=== PATIENT | male | born 1965 | race Caucasian/White ===

== ENCOUNTER 2025-02-15 13:17 | Outpatient (AMB) | payer OTHER, SELFPAY ==
--- NOTE | 2025-02-15 13:28 | MHC.OFFWIV ---
Intake Vital Signs 02/15/25 14:01 Height 6 ft 3 in Weight 260 lb BMI 32.5 BP 140/90 H Blood Pressure Location Lt brachial Position Sitting Pulse 108 H Pulse Source Pulse Oximeter Temp 98.0 F Temp Source Oral Pulse Oximetry (%) 98 Oxygen Delivery Method Room Air Intake Visit Reasons: WORKING SECOND HAND Cough, chest congestion Intake Note: Pt presents to the office today for c/o cough,chest congestion, and sinus pressure x2 weeks. Patient Tobacco Use Status: Never used Tobacco Allergies doxycycline Allergy (Intermediate, Verified 02/15/25 14:05) Hives HPI WORKING SECOND HAND Cough, chest congestion HPI Details This is a 60-year-old male patient who presents to the walk-in clinic today with a one-week history of cough, chest congestion, sinus pressure. He states that he has a lot of congestion in his upper airways, and he has developed pneumonia in the past following similar illnesses, and would like to avoid this. He states he had a fever earlier this week which has since resolved. Denies any known exposure to sick contacts. Has tried Delsym without relief. [facility] Social History Patient Tobacco Use Status: Never used Tobacco Review of Systems Const All systems reviewed & are unremarkable except as noted in HPI and below Physical Exam Vital Signs: Last Vital Signs Temp 98.0 F 02/15/25 14:01 Pulse 108 H 02/15/25 14:01 BP 140/90 H 02/15/25 14:01 Pulse Ox 98 02/15/25 14:01 Oxygen Delivery Method Room Air 02/15/25 14:01 BMI result Body Mass Index 32.5 Const General: cooperative, healthy appearing, comfortable and no acute distress Limitations: no limitations HEENT Head: Yes normal to inspection Ears: hearing grossly normal bilaterally General nose exam: Normal external nose present Neck Neck: Yes no lymphadenopathy Resp Effort & Inspection: normal respiratory effort and able to speak in complete sentences Auscultation: rhonchi (otherwise clear) upper bilaterally Cardio Palpation: normal PMI Rate: regular rate Rhythm: regular rhythm Heart sounds: S1 normal heart sound present and S2 normal heart sound present Skin General skin exam: no rashes or lesions noted Extrem General: Yes no clubbing, cyanosis or edema Psych Appearance: grossly normal Mental Status: mental status grossly normal Speech and movement: Normal speech and movement present Assessment & Plan Assessment & Plan (1) Upper respiratory infection: Code(s): J06.9 - Acute upper respiratory infection, unspecified Qualifiers: URI type: unspecified URI Qualified Code(s): J06.9 - Acute upper respiratory infection, unspecified Plan: Will start azithromycin, as this has worked well for patient for similar or illnesses in the past. We reviewed indications, use, possible side effects of this medication. I encouraged him to utilize some sotq-eph-khyypcu cough/cold medication, such as Mucinex which may help him expectorate some of those secretions. Advised to return for follow up if he does not improve with treatment. Patient verbalizes understanding and agrees to plan. Medications: New azithromycin For 250 mg dose pack: take 500 mg today (day 1), then 250 mg for 4 days (days 2-5) PO 6 tabs 0RF J06.9 - Acute upper respiratory infection, unspecified Coding Level of Care Code Est Pt Level 4 (25149) Diagnoses Upper respiratory tract infection, unspecified type J06.9 URI type: unspecified URI
--- OUTSIDE RECORDS SUMMARY | 2025-02-15 13:42 | XMS_ITS | Patient Health Record ---
[facility] Address [address] [place] [address] Care Team Providers Care Health Nurse Name Role Phone Chucky Smith MD Primary Care Provider Clari Arroyo Unavailable [phone] Allergies Allergen (clinical drug ingredient) Drug/Non Drug Allergy documented on EMR Reaction Allergy Type Onset Date Status doxycycline Doxycycline Unknown Drug Allergy Act hardeep Reason For Referral No Information Medications Medication SIG (Take, Route, Frequency, Duration) Notes Start Date End Date Status Benazepril HCl 10 MG 1 tablet Orally Onc e a day for 30 day(s) Active amLODIPine Besylate 5 MG 1 tablet Orally Once a day for 30 day(s) Active Social History Tobacco Use: Social History Observation Description Date Details (start date - stop date) Never Smoker NA - NA Tobacco Use/Smoking Question Answer Notes Are you a: nonsmoker Additional Findings: Tobacco Non-User Current no n-smoker Alcohol Screen Question Answer Notes Did you have a drink containing alcohol in the p ast year? No Points 0 Interpretation Negative Plan Of Treatment No Information Insurance Providers Payer Name Payer Address Payer Phone Subscriber Number Group Number Insured Name Patient Relationship to Insured Coverage Start Date Coverage End Date [facility] [address] [place] [address] [phone] [id number] Rohan Soto Self - patient is the insured Medical (General) History Medical History History ICD Code Back,Hip,and Knee pain High blood pressure Joint implants/screws Von Willebrands Disease Surgical History Surgery Date(Month/Year) jaw surgery 1984 arthroscopic knee surgery 2000, 2001 ankle surgery 1994
--- OUTSIDE RECORDS SUMMARY | 2025-02-15 13:43 | XMS_ITS ---
Author Organization [facility] Address [address] [place] [address] Care Team Providers Care Vending Attendant Name Role Phone Chucky Smith MD Primary Care Provider Unava ilClari Winkler [phone] REASON FOR VISIT Formula 7 Encounters Encounter Location Date Provider Diagnosis [facility] [address] [place] [address] 12/06/2023 Clari Quinones Plan Of Treatment No Information Progress Notes * Rohan SOTODOB:1965 (58 yo M)Acc No.[id number]:12/06/2023 Patient:?Rohan Soto :1965???Age:58 Y???Sex:Male Address:[address] [place] [address], [address] * true * Date:? Generated for Printi ng/Fabrandong/eTransmitting on:?02/15/2025 01:42 PM EDT
--- OUTSIDE RECORDS SUMMARY | 2025-02-15 13:43 | XMS_ITS | Continuity of Care Document ---
Author Organization [facility] Address [address] [place] [address]- Care Team Providers Care Hand Rigger Name Role Phone Sarah PARIS, Chucky Robles Primary Care Physician [phone] [id number] Date[facility] - 02/10/25 [facility] [address], [place] [address] Encounter Type: Triage Allergies, Adverse Reactions, Alerts Substance Criticality Severity Reaction Reaction Severity Status labetalol CRITICAL Active doxycycline RASH Active Avelox CRITICAL Active hydroCHLOROthiazide CRITICAL Active Pollen Active zolpidem CRITICAL Active Singulair CRITICAL Active FLUoxetine CRITICAL Active Immunizations Given and Recorded Vaccine Date Status Refusal Reason Typhoid Vaccine, Inactivated 08/09/24 Recorded Typhoid Vaccine, Inactivated 11/13/19 Given influenza virus vaccine, inactivated 07/21/24 Marco rded influenza virus vaccine, inactivated 1 07/25/23 Re corded influenza virus vaccine, inactivated 07/25/22 Marco rded influenza virus vaccine, inactivated 08/26/21 Marco rded influenza virus vaccine, inactivated 07/16/20 Marco rded influenza virus vaccine, inactivated 08/30/17 Marco rded influenza virus vaccine, inactivated 2 08/10/16 Re corded SARS-CoV-2(COVID-19)mRNA-LNP vac([id number]) 07/21/24 Recorded [id number] bivalent booster vax 3 08/01/23 Recorded pneumococcal 20-valent conjugate vaccine 12/24/22 Recorded [id number] 12y+ bivalent booster vax 4 07/25/22 Recorded smallpox and monkeypox vaccine 07/14/22 Recorded SARS-CoV-2 (COVID-19) mRNA-1273 vaccine 02/14/22 R ecorded SARS-CoV-2 (COVID-19) mRNA-1273 vaccine 09/25/21 R ecorded SARS-CoV-2 (COVID-19) mRNA-1273 vaccine 11/29/20 R ecorded SARS-CoV-2 (COVID-19) mRNA-1273 vaccine 11/01/20 R ecorded Zoster Vaccine Live 12/08/19 Recorded tetanus/diphtheria/pertussis, acel(Tdap) 11/09/19 Given tetanus/diphtheria/pertussis, acel(Tdap) 5 08/11/10 Recorded zoster vaccine, inactivated 07/06/19 Recorded pneumococcal 23-valent vaccine 6 02/16/99 Recorded 1Result Comment: Helga 2Location History: [facility] 3Result Comment: [facility] 4Result Comment: [facility] 5Location History: [facility] 6Location History: [facility] Medications Laurie By Mouth, 0 Refills, Maintenance, 08/24/23 1:47:00 PM EDT, Partial fill upon patient request if theprescription is for a schedule II opioid drug. Start Date: 08/24/23 Status: Ordered Repeat number: 1 amlodipine-benazepril 5 mg-10 mg oral capsule 1 capsule, By Mouth, Daily, # 90 capsule, 3 Refills, Maintenance, 01/13/25 6:11:00 AM EDT, Capsule, [id number], Partial fill upon patient request if the prescription is for a schedule II opioid drug., 1 capsule By Mouth Daily, 190, cm, 01/03/25 14:28:00 EST, Height, 123, kg, 01/03/2514:28:00 EST, Dry Weight Start Date: 01/13/25 Status: Ordered Quantity: 90.0 Unit: capsule Repeat number: 4 Multivitamin Daily, 0 Refills, Maintenance, 09/22/22 8:17:00 AM EST, Partial fill upon patient request if the prescription is for a schedule II opioid drug. Start Date: 09/22/22 Status: Ordered Repeat number: 1 Problem List Condition Confirmation Course Effective Dates Status Health St atus Informant Allergic rhinitis Confirmed Active Carpal tunnel syndrome Confirmed Active Essential hypertension Confirmed Active Obese class I Confirmed Active Colon polyps Confirmed Active Varicella 1 Confirmed Active Verruca Confirmed Active Von Willebrand disease Confirmed Active [facility]IT[id number] Social History Social History Type Response Smoking Status Never smoker entered on: 07/22/17 Sex Sex Representation Male (finding) Patient Care team information Care Team Personnel Name: Desirae Delgaod Position: [facility] Onco RN Member Role: Primary Care Nurse Name: Cal Angel MD Position: [facility] Physician - Gastroenterology Member Role: Lifetime Consulting Physician Address: [address] [place] [address], [address] [facility] [place] [address]- Telecom: Name: Tana Ron RN Position: [facility] RN Member Role: Primary Care Nurse Name: Chucky Smith MD Position: [facility] Physician - Primary Care Member Role: PCP Address: [address] [place] [address]- Telecom: Care Team Related Persons Name: SUNNI GRAHAM Insurance Providers Guarantor name: ED GRAHAM Health Plan Information #: 1 Payer: BLUE B[employer]EFIT [employer] PPO Member Number: NA Policy Number: NA Group Number: NA
[2025-02-15 14:01] VITALS: BP 140/90; PULSE 108; TEMP 36.7; O2SAT 98; BMI 32.5
== END 2025-02-15 14:26 | disposition home or self-care (01) ==
PROVIDERS: PCP Internal Medicine; Visit Provider Nurse Practitioner Family
DX: J06.9 Acute upper respiratory infection, unspecified (principal)

== ENCOUNTER → 2025-02-15 13:17 | Outpatient (BNVA) | payer OTHER, SELFPAY | PROVIDERS: PCP Internal Medicine ==

== ENCOUNTER 2025-02-20 09:52 | Outpatient (REF) | payer OTHER, SELFPAY ==
--- NOTE | ~2025-02-20 | XR_ITS ---
EXAMINATION: XR CHEST 2 VIEWS HISTORY: R09.89 - Other specified symptoms and signs involving the circulatory an... COMPARISON: There are no prior studies for comparison. FINDINGS: PA and lateral views of the chest are submitted. The lungs are expanded and clear. There is no pleural effusion, pneumothorax, or pulmonary vascular congestion. The heart is normal in size. There is degenerative disc disease of the spine. XR/XR chest 2V IMPRESSION: Clear lungs. Electronically signed by: Bipin Ponce MD 02/21/2025 08:04 AM EDT
[2025-02-20 13:18] LABS: MANUAL DIFF FLAG NO
[2025-02-20 13:32] LABS: Basophils Absolute Auto 0.1 X10*3/uL (0.0-0.2); Basophils Percent Auto 0.7 % (0-2); Eosinophils Absolute Auto 0.3 X10*3/uL (0.0-0.4); Eosinophils Percent Auto 3.2 % (0-4); Hemoglobin 14.7 g/dl (14.0-18.0); Imm Gran Pct Auto 2.2 % (0.0-0.4); Lymphocytes Absolute Auto 2.4 X10*3/uL (1.2-4.9); Lymphocytes Percent Auto 26.5 % (20-40); Mean Corpuscular Hemoglobin 31.7 pg (27.0-33.0); Mean Corpuscular Volume 90.7 fL (80.0-98.0); Mean Platelet Volume 10.5 fL (9.4-12.4); Monocytes Absolute Auto 1.1 X10*3/uL (0.1-1.2); Monocytes Percent Auto 11.7 % (2-11); Neutrophils Absolute Auto 5.1 x10*3/uL (2.0-8.3); Neutrophils Percent Auto 55.7 % (45-73); Platelet Count 289 X10*3/uL (160-400); Red Blood Count 4.63 X10*6/uL (4.60-5.80); Red Cell Distribution Width 13.1 % (11.0-16.0); White Blood Count 9.2 X10*3/uL (4.8-10.8)
== END 2025-02-20 09:53 | disposition home or self-care (01) ==
LOC: HO.HMGCX 09:52
PROVIDERS: PCP Internal Medicine; Visit Provider Internal Medicine
DX: J98.01 Acute bronchospasm (principal); R09.89 Other specified symptoms and signs involving the circulatory and respiratory systems
CPT/HCPCS: 36415; 71046; 85025; 94640; 96127

== ENCOUNTER 2025-02-20 09:52 | Outpatient (AMB) | payer OTHER, SELFPAY ==
--- NOTE | 2025-02-20 09:54 | MHC.PC.OV ---
Vital Signs 02/20/25 09:56 Height 6 ft 3 in Weight 260 lb BMI 32.5 BP 138/74 Blood Pressure Location Lt brachial Position Sitting Respiration 16 Pulse 99 Pulse Source Pulse Oximeter Temp 97.6 F Temp Source Oral Pulse Oximetry (%) 97 Oxygen Delivery Method Room Air Intake Visit Reasons: chest congestion Intake Note: Pt is here today c/o nasal and chest congestion plus wheezing Allergies doxycycline Allergy (Intermediate, Verified 02/20/25 10:06) Hives Medication List - Last Reconciled 02/20/25 by Desirae Alarcon MD amlodipine-benazepril 5-10 mg 1 cap PO DAILY fexofenadine (Laurie Allergy) 180 mg PO DAILY Tobacco use date assessed: 02/20/25 HPI chest congestion HPI Details 60-year-old male, here to establish care with new PCP. He has been having cough and chest congestion and postnasal drainage, seen at the walk-in clinic 02/15/2025 and treated for possible sinus infection with azithromycin , with no improvement of symptoms noted. He has been afebrile, but still having cough and congestion, with wheezing and easily getting winded. [facility] Medical History (Updated 02/20/25 @ 10:24 by Desirae Alarcon MD) Chest congestion Cough due to bronchospasm History of adenomatous polyp of colon Essential hypertension Von Willebrand disease Surgical History (Updated 02/20/25 @ 10:16 by Desirae Alarcon MD) History of mandibular surgery Hx of Achilles tendon repair History of arthroscopy of left knee Family History (Updated 02/20/25 @ 10:22 by Desirae Alarcon MD) Mother Hypothyroidism Hypercholesterolemia Father Lung cancer Paternal Uncle Lung cancer Social History (Updated 02/21/25 @ 00:06 by Desirae Alarcon MD) Alcohol intake: current Alcohol intake frequency: holidays/special occasions only Patient Tobacco Use Status: Never used Tobacco Questionnaire PHQ-9 Over the last 2 weeks, how often have you been bothered by any of the following problems? 1. Little interest or pleasure in doing things: not at all 2. Feeling down, depressed, or hopeless: not at all 3. Trouble falling or staying asleep, or sleeping too much: not at all 4. Feeling tired or having little energy: not at all 5. Poor appetite or overeating: not at all 6. Feeling bad about yourself - or that you are a failure or have let yourself or your family down: not at all 7. Trouble concentrating on things, such as reading the newspaper or watching television: not at all 8. Moving or speaking so slowly that other people could have noticed. Or the opposite - being so fidgety or restless that you have been moving around a lot more than usual: not at all 9. Thoughts that you would be better off or of hurting yourself in some way: not at all Total score: 0 Depression Screening Interpretation: Negative Depression Screening Done: Yes 20759 - PHQ-9 Billing: Yes Source: Developed by Drs. Bipin Ramos, Brielle Zelaya, Yayo Singh and colleagues, with an educational parish from [employer]. Review of Systems Const Reports no additional complaints and Denies headache(s) ENT Denies dizziness, Denies otalgia, Denies headache(s), Denies sinus pain, Denies sinus pressure, Denies sore throat and Denies throat swelling Card Reports no additional complaints Resp Reports as per HPI GI Reports no additional complaints Musc Reports no additional complaints Neuro Denies dizziness and Denies headache(s) Aller/Immun Denies throat swelling Physical exam (Primary Care) Vital Signs: Last Vital Signs Temp 97.6 F 02/20/25 09:56 Pulse 99 02/20/25 09:56 Resp 16 02/20/25 09:56 BP 138/74 02/20/25 09:56 Pulse Ox 97 02/20/25 09:56 Oxygen Delivery Method Room Air 02/20/25 09:56 BMI result Body Mass Index 32.5 Tobacco/Smoking Status: Tobacco use Status Tobacco use date assessed 02/20/25 02/20/25 09:59 Patient Tobacco Use Status Never used Tobacco 02/20/25 09:59 Depression Screening Interpretation: Negative Const Orientation/consciousness: patient oriented x3 HENMT Head: Yes normocephalic Ears: external ears normal, TM's normal bilaterally and EAC's normal General nose exam: Normal external nose present and No nasal discharge present Face and sinus: Yes face symmetric and No sinus tenderness Mouth: Normal oral and palatal mucosa present and oropharynx normal Neck Neck: Yes full ROM, Yes no lymphadenopathy and Yes supple Resp Auscultation: wheezes scattered wheezes and bronchial breath sounds Cardio Rate: regular rate Rhythm: regular rhythm Heart sounds: S1 normal heart sound present and S2 normal heart sound present Neuro General: patient oriented x3, gait normal, tone normal, moves all extremities and no focal motor deficits Office Procedures Nebulizer Treatment Nebulizer Treatment 69316-Snrqbxkvp/MDI RX initial, or Nebulizer Subsequent Treatment Office Meds albuterol sulfate 2.5 mg/3 mL (0.083 %) solution for nebulization Performing Provider: Desirae Alarcon MD Performing Location: [facility] Documented (not given) by: Christine Yu CMA on 02/20/25 10:38 Reason Not Given: Not Medically Necessary ipratropium 0.5 mg-albuterol 3 mg (2.5 mg base)/3 mL nebulization soln Performing Provider: Desirae Alarcon MD Performing Location: [facility] Administered by: Christine Yu CMA on 02/20/25 10:38 Dose Route Admin Location Dispensed Lot Number Expiration Date [facility] Sulfonator Operator 3 mL inhalation 3 mL [id number] 01/04/26 02545-169-12 [facility] Coding Level of Care Code New Pt Level 4 (51832) Diagnoses Cough due to bronchospasm J98.01 Chest congestion R09.89 CPT Codes Nebulizer Treatment - Nebulizer Treatment, initial or subsequent: 79251-Jrwoxeurq/MDI RX initial, or Nebulizer Subsequent Treatment ([id number]) Additional Codes PHQ-9 - 88382 - PHQ-9 Billing: Yes ([id number]) Assessment & Plan Assessment & Plan (1) Cough due to bronchospasm: Code(s): J98.01 - Acute bronchospasm Category: Medical (2) Chest congestion: Code(s): R09.89 - Other specified symptoms and signs involving the circulatory and respiratory systems Category: Medical Plan Nebulizer treatment given with DuoNeb with improvement in sounds noted. Chest x-ray ordered as well as CBC with differential, will give a short course of prednisone 10 mg per tablet to take 4 tablets daily on days 1-2, 3 tablets on days 3-4, 2 tablets on days 5-6, and 1 tablet daily on days 7-8. Advised to take it in the morning with either food or, prescription also given for albuterol inhaler with spacer to use as directed 2 inhalations every 6 hours as needed for episodes of bronchospasm and wheezing. Orders: Orders XR chest 2V 02/20/25 J98.01 - Acute bronchospasm, R09.89 - Other specified symptoms and signs involving the circulatory and respiratory systems Complete Blood Count Auto Diff 02/20/25 J98.01 - Acute bronchospasm, R09.89 - Other specified symptoms and signs involving the circulatory and respiratory systems AMB Nebulizer Treatment 02/20/25 J98.01 - Acute bronchospasm, R09.89 - Other specified symptoms and signs involving the circulatory and respiratory systems Medications: New prednisone see taper instructions Take 40 mg or 4 tablets once a day in a.m. on days 1 and 2, 30 mg for 3 tablets on days 3 and 4, 20 mg or 20 tablets on days 5 and 6, and 1 tablet or 10 mg on days 7 and 8. Always take it with breakfast or milk 10 mg PO DIRECTED 20 tabs 0RF J98.01 - Acute bronchospasm, R09.89 - Other specified symptoms and signs involving the circulatory and respiratory systems albuterol sulfate 90 mcg/actuation 2 puffs inhalation QID PRN 8.5 grams 0RF shortness of breath or wheezing J98.01 - Acute bronchospasm, R09.89 - Other specified symptoms and signs involving the circulatory and respiratory systems inhalational spacing device (BreatheRite MDI Spacer) Please as directed with albuterol inhaler 1 ea 0RF J98.01 - Acute bronchospasm, R09.89 - Other specified symptoms and signs involving the circulatory and respiratory systems
[2025-02-20 09:56] VITALS: BP 138/74; PULSE 99; RESP 16; TEMP 36.4; O2SAT 97; BMI 32.5
--- OUTSIDE RECORDS SUMMARY | 2025-02-20 11:11 | XMS_ITS | Patient Health Record ---
[facility] Address [address] [place] [address] Care Team Providers Care Promotor Group Ticket Sales Name Role Phone Chucky Smith MD Primary Care Provider Clari Arroyo Unavailable [phone] Allergies Allergen (clinical drug ingredient) Drug/Non Drug [...] Insured Coverage Start Date Coverage End Date [facility] [address] [place] [address] [id number] Rohan Soto Self - patient is the insured Medical (General) History Medical History History ICD Code Back,Hip,and Knee pain High blood pressure Joint implants/screws Von Willebrands Disease Surgical History Surgery Date(Month/Year) jaw surgery 1984 arthroscopic knee surgery 2000, 2001 ankle surgery 1994
--- OUTSIDE RECORDS SUMMARY | 2025-02-20 11:12 | XMS_ITS ---
Author Organization [facility] Address [address] [place] [address] Care Team Providers Care Carbon Brushes Assembler Name Role Phone Chucky Smith MD Primary Care Provider Unava ilClari Winkler [phone] REASON FOR VISIT Formula 7 Encounters Encounter Location Date Provider Diagnosis [facility] [address] [place] [address] 12/06/2023 Clari Quinones Plan Of Treatment No Information Progress Notes * Rohan SOTODOB:1965 (58 yo M)Acc No.[id number]:12/06/2023 Patient:?Rohan Soto :1965???Age:58 Y???Sex:Male Address:[address] [place] [address], [address] * true * Date:? Generated for Printi ng/Fabrandong/eTransmitting on:?02/20/2025 11:11 AM EDT
--- OUTSIDE RECORDS SUMMARY | 2025-02-20 11:12 | XMS_ITS | Data Portability ---
Author Organization [facility], [facility] Address [address] [place] [address] Care Team Providers Care Sap Business Objects Consultant Name Role Phone FRANKYJOSIE TRISTAN Primary Care Provider WILMER PARKS Enterprise Application Developer Assessment No assessment recorded. Plan of Treatment Reminders Order Date Submit Date Provider Last Modified By Organization Details Last Modified Time Details Appointments None recorded. Lab None recorded. Referral physical therapist referral - OA knee program 2023 024 [facility]), [address] [place] [address], [place], [address], 4 09:15:14 Procedures None recorded. Surgeries None recorded. Imaging None recorded. Medication Orders None recorded. Patient TargetsNo targets recorded. Patient InstructionsNo instructions recorded. Reason for Referral Physical Therapist Referral for Acute tear of medial meniscus of right knee OA knee program Referring Physician: Kurt Mistry, Orthopedic Surgery, Encounter Date: 03/23/2024 Procedures Surgical History Date Name Laterality Status Provider Name and Address Organization Details Recorded Time 5 Sports Knee 4&1 completed Kurt Mistry PA-C [address], [place], [address], [place] [facility] 11/28/2024 09:33:37 5 Large Joint Aspiration L/R completed Kurt Mistry PA-C [address], [place], [address], [place] [facility] 11/28/2024 09:33:58 4 Knee Kenalog 40mg 1cc Asp & Inj, L/R completed Kurt Mistry PA-C [address], [place], [address], [facility] 08/10/2024 15:50:24 4 Knee Kenalog 40mg 1cc Asp & Inj, L/R completed Kurt Mistry PA-C [address], [place], [address], [facility] 06/19/2024 14:45:45 4 Knee Kenalog 40mg 1cc Asp & Inj, L/R completed Kurt Mistry PA-C [address], [place], [address], [facility] 03/23/2024 15:52:20 Imaging Results None recorded. Procedure Notes None recorded. Medical Equipment None Reported. Allergies Allergen ID Allergen Name Allergen Category Reaction Reaction Severity Criticality Documentation Date Start Date Code Code System Note Provider Name and Address Organization Details Recorded Time 774807 doxycycli ne Not available Not available Not available Not available 08/10/2024 3640 RxNorm Roselai Talbert [facility] 15:17:40 Medications Name Sig Start Date Stop Date Status Note LastModified by Organization Details LastModified Time cephalexin 250 mg capsule TAKE 1 CAPSULE BY MOUTH FOUR TIMES DAILY FOR 10 DAYS 08/10 completed Not Available Not Available Not Available tretinoin 0.025 % topical cream APPLY TOPICALLY TO THE AFFECTED AREA DAILY AT BEDTIME active Not Available Not Available No t Available amlodipine 2.5 mg-benazepr il 10 mg capsule TAKE 1 CAPSULE BY MOUTH DAILY DECREASE IN DOSE. REPLACES PREVIOUS PRESCRIPT ION active Not Available Not Available No t Available terbinafine HCl 250 mg tablet 05/02 completed Not Available Not Available Not Available amlodipine 5 mg-benazepr il 10 mg capsule TAKE 1 CAPSULE BY MOUTH DAILY 08/10 completed Not Available Not Available Not Available zolpidem 10 mg tablet TAKE 1 TABLET BY MOUTH DAILY AT BEDTIME NEEDED FOR SLEEP 11/28 completed Not Available Not Available Not Available azithromyci n 500 mg tablet TAKE 1 TABLET BY MOUTH DAILY 11/28 completed Not Available Not Available Not Available GaviLyte-G 236 gram-22.74 gram-6.74 gram-5.86 gram oral solution TAKE DIRECTED 08/10 completed Not Available Not Available Not Available Vitals Date Recorded Body height Body mass index (BMI) Body weight Provider Name and Address Organization Details Last Updated DateTime 05/02/2024 190.5 cm 32.5 kg/m2 742377.02 g SOL VAZQUEZ [facility] 05/02/2024 10:29:14 Date Recorded Body height Body mass index (BMI) Body weight Provider Name and Address Organization Details Last Updated DateTime 06/19/2024 190.5 cm 32.5 kg/m2 743769.02 g Ana María Flannery [facility] 06/19/2024 14:20:37 Date Recorded Body height Body mass index (BMI) Body weight Provider Name and Address Organization Details Last Updated DateTime 08/10/2024 190.5 cm 32.5 kg/m2 151634.02 g Roselia Talbert [facility] 08/10/2024 15:17:28 Date Recorded Body height Body mass index (BMI) Body weight Provider Name and Address Organization Details Last Updated DateTime 11/28/2024 190.5 cm 32.5 kg/m2 204989.02 g CARLOS CARDENAS [facility] 11/28/2024 08:43:15 Social History Question Answer Notes LastModified by Organizat ion Details LastModified Time Tobacco Smoking Status Never Smoker CARLOS CARDENAS [facility] 11/28/2024 08:44:27 What Is Your Level Of Alcohol Consumption? Occasional Information not available 11/28/2024 How Many Times Per Week Do You Consume Alcohol? Less Than 1 Time Per Week Information not available 11/28/2024 Have You Ever Been Counseled For Unhealthy Alcohol Use? No Information not available 11/28/2024 What Is Your Relationship Status? Single Information not available 11/28/2024 Do You Use Any Illicit Or Recreational Drugs? No Information not available 11/28/2024 Do You Or Have You Ever Used Any Other Forms Of Tobacco Or Nicotine? No Information not available 11/28/2024 Sex: Unknown Functional Status None recorded. Mental Status None recorded. Family History Nothing Reported. Medical History Condition Response Bleeding Disorder Y Arthritis Y Hypertension Y Past Encounters Encounter ID Performer Location Encounter Start Date Encounter Closed Date Diagnosis/Indication Diagnosis SNOMED-CT Code Diagnosis ICD10 Code Diagnosis Note [id number] [facility] [address] [place] [address] 03/23/2024 14:48:53 04/17/2024 09:15:14 Osteoarthritis of knee 265177306 M17.9 Acute tear of medial meniscus of right knee [id number] 8982199 S83.241A [id number] Kurt Mistry PA-C [address] [place] [address] 05/02/2024 10:25:10 06/06/2024 11:58:47 Osteoarthritis of knee 493281332 M17.9 [id number] Kurt Mistry PA-C [address] [place] [address] 06/19/2024 13:59:42 07/13/2024 13:58:54 Osteoarthritis of knee 542592609 M17.9 [id number] [facility] [address] [place] [address] 08/10/2024 15:14:44 09/05/2024 08:45:23 Osteoarthritis of knee 288778394 M17.9 [id number] Kurt Mistry PA-C [facility] [address] [place] [address] 11/28/2024 08:35:55 12/10/2024 12:32:33 Osteoarthritis of right knee joint 6031713672 59058 M17.11 Health Concerns Section Related Observation LastModified by Organization Detai ls LastModified Time None Recorded Concern Status LastModified by Organization Details LastModified Time None Recorded Advance Directives Directive None Recorded Payers Encounter Date Sequence Insurance Name Policy Number Policy Reyes Covered Member ID Reyes Member ID Guarantor Name 03/23/2024 TRAVELERS [facility] Mirian greenn J Ganem 05/02/2024 TRAVELERS [facility] awn J Ganem 08/10/2024 TRAVELERS [facility] Mirian awn J Ganem 11/28/2024 TRAVELERS [facility] norman J Gansherrell Notes Date Note Type Note Provider Name and Address Organization Details Recorded Time 03/23/2024 text/html I am seeing the patient today under the supervision of {{Osmar Disla}} who was available but who did not see the patient. Rohan presents to clinic for examination of his right knee. 59-year-old gentleman who sustained a work related injury when he was standing from a sitting position and twisted and felt the pop sensation through the knee. He has since had significant swelling, limited range of motion, and pain with weight-bearing activities. He experiences a catch like sensation through the knee. swelling has resulted in inability to fully extend or range the knee. He has significant pain at night. Right knee: 1+ effusion, Limited range of motion of +5? ? ? to flexion of 95? ? ?, exquisite pain along the medial joint line with briskly positive medial Samantha and medial Esdras maneuver. Ligamentous stable. Calf was supple. left knee: full range of motion, no pain to palpate, slight crepitus with range of motion, negative meniscus or ligament testing, calf with supple X-rays: four views right knee confirm moderate medial and patellafemoral arthritic changes. Moderate arthritic changes appreciated through the left knee immediately as well. An MRI was interpreted independently and reviewed at length. Confirmed, moderate to advancing medial and patellofemoral compartment arthritis. Complex in macerated, tear of the body and push your horn in the medial meniscus. Impression: right knee effusion, complex, tear medial meniscus, underlying arthrosis : Reviewed and discussed at length the nature of his symptoms in appropriate care. Under as septic technique aspiration of 35 cc of fluid was obtained. Reduced Cortisone. We will initiate physical therapy. See him back in six weeks. Kurt Mistry PA-C [address] [facility] [address], [place], [address], [facility] 03/24/2024 19:01:01 05/02/2024 text/html I am seeing the patient today under the supervision of Dr. Disla who was available but who did not see the patient.Rohan returns in follow-up regarding the right knee. Significant improvement after prior aspiration and injection. Doing well at this time.Past family, medical, social history and review of systems has been reviewed, updated and is located in the patient? s chart.Examination: No effusion, range of motion was full, still some low-grade tenderness across the medial having joint. Still slightly positive medial meniscal findings through Callum's testing. Calf suppleImpression: Right knee confirmed degenerative medial meniscus tear and medial compartment arthrosis, currently doing well after prior aspiration injectionPlan: Reviewed and discussed continue current conservative care. Discussed following us as needed for potential repeat injection versus proceeding with diagnostic arthroscopy if warranted. We did discuss the advanced arthrosis in the knee, and potential future treatment options to include possible total knee replacement. Kurt Mistry PA-C [address], [place], [address], [facility] 05/02/2024 10:48:49 06/19/2024 text/html I am seeing the patient today under the supervision of Dr. Powers who was available but who did not see the patient.Rohan returns in follow-up regarding the right knee. Significant improvement after prior aspiration and injection. Returns today unfortunately with reaccumulation of swelling and diffuse pain to the right knee.Past family, medical, social history and review of systems has been reviewed, updated and is located in the patient? s chart.Examination: 1+ effusion, range of motion was full, still some low-grade tenderness across the medial having joint. Still slightly positive medial meniscal findings through Callum's testing. Calf suppleImpression: Right knee confirmed degenerative medial meniscus tear and medial compartment arthrosis, currently doing well after prior aspiration injectionPlan: Reviewed and discussed continue current conservative care. Discussed repeating aspiration injection which she consented to. I obtained 30 cc of normal-appearing synovial fluid. Follow up with us as needed. Kurt Mistry PA-C [address], [place], [address], [facility] 06/19/2024 14:46:06 08/10/2024 text/html I am seeing the patient today under the supervision of Dr. Mcknight who was available but who did not see the patient.Rohan returns in follow-up regarding the right knee. Significant improvement after prior aspiration and injection. Returns today unfortunately with re-accumulation of swelling and diffuse pain to the right knee.Past family, medical, social history and review of systems has been reviewed, updated and is located in the patient? s chart.Examination: 1+ effusion, range of motion was full, still some low-grade tenderness across the medial having joint. Still slightly positive medial meniscal findings through Callum's testing. Calf suppleImpression: Right knee confirmed degenerative medial meniscus tear and medial compartment arthrosis, currently doing well after prior aspiration injectionPlan: Reviewed and discussed continue current conservative care. Discussed repeating aspiration injection which she consented to. I obtained 35 cc of normal-appearing synovial fluid. Follow up with us as needed. Kurt Mistry PA-C [address], [place], [address], [facility] 08/10/2024 15:51:03 11/28/2024 text/html I am seeing the patient today under the supervision of Dr. Desir who was available but who did not see the patient.Rohan returns in follow-up regarding the right knee. Significant improvement after prior aspiration and injection. Returns today unfortunately with re-accumulation of swelling and diffuse pain to the right knee.Past family, medical, social history and review of systems has been reviewed, updated and is located in the patient? s chart.Examination: 1+ effusion, range of motion was full, still some low-grade tenderness across the medial having joint. Still slightly positive medial meniscal findings through Callum's testing. Calf suppleImpression: Right knee confirmed degenerative medial meniscus tear and medial compartment arthrosis, currently doing well after prior aspiration injectionPlan: Reviewed and discussed continue current conservative care. Discussed repeating aspiration injection which she consented to. I obtained 35 cc of normal-appearing synovial fluid. Follow up with us as needed. Kurt Mistry PA-C [address], [place], [address], [facility] 11/28/2024 09:34:26
== END 2025-02-20 11:00 | disposition home or self-care (01) ==
LOC: HO.HMCC 09:52
PROVIDERS: PCP Internal Medicine; Visit Provider Internal Medicine
DX: R09.89 Other specified symptoms and signs involving the circulatory and respiratory systems (principal); J98.01 Acute bronchospasm

== ENCOUNTER → 2025-02-20 11:10 | Outpatient (BNV) | payer OTHER, SELFPAY | PROVIDERS: PCP Internal Medicine; Visit Provider Radiology Diagnostic Radiology | DX: R09.89 Other specified symptoms and signs involving the circulatory and respiratory systems (principal) | CPT/HCPCS: 71046 ==

== ENCOUNTER → 2025-04-16 13:56 | Outpatient (BNVA) | payer OTHER, SELFPAY | PROVIDERS: PCP Internal Medicine; Visit Provider Physician Assistant Medical | DX: Z13.89 Encounter for screening for other disorder (principal) | CPT/HCPCS: 73564; 99202 ==

== ENCOUNTER 2025-04-24 12:51 | Outpatient (AMB) | payer OTHER, SELFPAY ==
--- NOTE | 2025-04-24 12:56 | A.OFFVIS_ITS ---
Vital Signs 04/24/25 12:57 Height 6 ft 3 in Weight 260 lb BMI 32.5 Intake Visit Reasons: [employer] WC-left knee injury DOI 01/05/25 Intake Note: Rohan is a 60 year old male who presents today as a new patient for evaluation of a work-related injury to the left knee, DOI: 01/05/25. The patient states that his knee was aggravated because his work station was too low at his job. The patient states that he previously underwent left knee arthroscopic surgery around 1999 in [place]. He got fairly good relief from that procedure. He has tried physical therapy exercises which aggravated his pain. Most of the pain is along the medial aspect of his knee. Allergies doxycycline Allergy (Intermediate, Verified 04/24/25 13:00) Hives Medication List - Last Reconciled 04/24/25 by Preet Valdovinos MD albuterol sulfate 90 mcg/actuation 2 puffs inhalation QID PRN amlodipine-benazepril 5-10 mg 1 cap PO DAILY fexofenadine (Laurie Allergy) 180 mg PO DAILY inhalational spacing device (BreatheRite MDI Spacer) Please as directed with albuterol inhaler lidocaine 5% 1 patch topical DAILY PFSH Medical History (Updated 04/24/25 @ 13:20 by Preet Valdovinos MD) Chest congestion Cough due to bronchospasm History of adenomatous polyp of colon Essential hypertension Von Willebrand disease Surgical History (Updated 02/20/25 @ 10:16 by Desirae Alarcon MD) History of mandibular surgery Hx of Achilles tendon repair History of arthroscopy of left knee Family History (Updated 02/20/25 @ 10:22 by Desirae Alarcon MD) Mother Hypothyroidism Hypercholesterolemia Father Lung cancer Paternal Uncle Lung cancer Social History (Updated 02/21/25 @ 00:06 by Desirae Alarcon MD) Alcohol intake: current Alcohol intake frequency: holidays/special occasions only Patient Tobacco Use Status: Never used Tobacco Physical Exam Vital Signs: BMI result Body Mass Index 32.5 Const Other: Well-nourished well-developed very friendly male awake alert and oriented x3 in no acute distress Extrem Other: Bilateral lower extremity examination shows good capillary refill, no skin lesions noted, normal sensation light touch Left knee examination shows a minimal effusion, palpable crepitus with range of motion, tenderness along his medial joint line, positive Callum's test, no instability Office Procedures AMB Joint Injection/Aspiration Joint Injection/Aspiration Primary Site: left knee Prep: site was prepped using aseptic technique Injected: 40 mg of, DepoMedrol and 1% plain lidocaine Procedure: The patient tolerated the procedure well Coding 88358 - Large joint Procedure code (CPT) selection complete Results Reviewed Results Reviewed: X-ray report of the patient's left knee shows joint space narrowing, subchondral sclerosis, no acute bony abnormalities Assessment & Plan Assessment & Plan (1) Tear of medial meniscus of left knee: Code(s): S83.242A - Other tear of medial meniscus, current injury, left knee, initial encounter Category: Medical Plan Mr. Soto presents with left knee pain due to degenerative joint disease as well as possible medial meniscus tearing. The risks and benefits of a left knee cortisone injection were discussed at length with the patient. The patient wished to proceed. He tolerated the injection well. I will also send him for an MRI of his left knee to further evaluate him for possible medial meniscus tearing. I will see him back after the MRI is completed to discuss the findings and treatment options. Feel free to call me at any time should questions regarding his orthopedic management arise. I spent 22 minutes in reviewing the patient's records and imaging studies, seeing the patient and documenting in the medical record. Orders: Orders AMB Joint Injection/Aspiration 04/24/25 S83.242A - Other tear of medial meniscus, current injury, left knee, initial encounter MR aranda LT wo con 04/24/25 S83.242A - Other tear of medial meniscus, current injury, left knee, initial encounter Coding Level of Care Code New Pt Level 3 (68762) Complex EM visit Add On G2211 Diagnoses Tear of medial meniscus of left knee S83.242A CPT Codes Coding - 01102 Large joint: 29589 - Large joint ([id number])
[2025-04-24 12:57] VITALS: BMI 32.5
--- OUTSIDE RECORDS SUMMARY | 2025-04-24 14:42 | XMS_ITS | Patient Health Record ---
Author Organization [facility] Address [address] [place] [address] Care Team Providers Care Gunner'S Mate Name Role Phone Chucky Smith MD Primary Care Provider Clari Arroyo Unavailable [phone] Allergies Allergen (clinical drug ingredient) Drug/Non Drug [...] Insured Coverage Start Date Coverage End Date [facility] [address] [place] [address] [id number] Rohan Soto Self - patient is the insured Medical (General) History Medical History History ICD Code Back,Hip,and Knee pain High blood pressure Joint implants/screws Von Willebrands Disease Surgical History Surgery Date(Month/Year) jaw surgery 1984 arthroscopic knee surgery 2000, 2001 ankle surgery 1994
== END 2025-04-24 13:21 | disposition home or self-care (01) ==
LOC: HO.HOS 12:51
PROVIDERS: PCP Internal Medicine; Visit Provider Orthopaedic Surgery
DX: S83.242A Other tear of medial meniscus, current injury, left knee, initial encounter (principal)
CPT/HCPCS: 20610; 99203

== ENCOUNTER → 2025-04-24 12:51 | Outpatient (BNVA) | payer OTHER, SELFPAY | PROVIDERS: PCP Internal Medicine; Visit Provider Orthopaedic Surgery | DX: S83.242A Other tear of medial meniscus, current injury, left knee, initial encounter (principal); W22.03XA Walked into furniture, initial encounter; Y93.89 Activity, other specified; Y92.89 Other specified places as the place of occurrence of the external cause; Y99.0 Civilian activity done for income or pay | CPT/HCPCS: 20610; 99202; J1010; J2003 ==

== ENCOUNTER → 2025-05-09 16:34 | Outpatient (BNV) | payer OTHER, SELFPAY | PROVIDERS: PCP Internal Medicine; Visit Provider Radiology Diagnostic Radiology | DX: M25.462 Effusion, left knee (principal) | CPT/HCPCS: 73721 ==

== ENCOUNTER 2025-05-09 16:35 | Outpatient (REF) | payer OTHER, SELFPAY ==
--- NOTE | ~2025-05-09 | MR_ITS ---
EXAMINATION: MR KNEE WITHOUT CONTRAST, LEFT CLINICAL INFORMATION: Left knee pain, steroid injection 2 weeks ago, arthroscopy in 1999 COMPARISON: X-ray April 16, 2025 FINDINGS: Menisci: Lateral Meniscus: Fine linear vertical intermediate signal extends to the femoral surface of posterior horn lateral meniscus involving the far peripheral aspect of the meniscus concerning for a tear. Medial Meniscus: The meniscus is degenerated and frayed. Body is mildly extruded from the joint line. It is performed through the body and posterior horn. There is a multiloculated parameniscal cyst posterior to the meniscal root. ACL/PCL: ACL is degenerated but appears intact. PCL appears intact. Extensor mechanism: Small minimally complex joint effusion is present. Chronically fragmented appearing tibial tuberosity is evident. There is an enthesophyte at the quadriceps attachment on patella. MCL/LCL: MCL demonstrates a mildly undulating contour of low signal, likely related to a remote injury. There is synovial fluid within the MCL bursa. LCL complex is intact. Articular cartilage: Patellofemoral Compartment: There is a small focal deep linear fissure in the middle third lateral facet of patella and the median ridge of the junction of mid to lower third patella, best appreciated on sagittal images. Irregular deep partial thickness articular cartilage defects are present in the trochlear groove measuring 2 cm in size. Lateral Compartment: Focal partial-thickness articular cartilage to effect in the far posterior lateral femoral condyle, grade II chondromalacia. Medial Compartment: Diffuse deep partial and full-thickness articular cartilage defects are present in nonweightbearing regions of the medial femoral condyle and central tibial plateau. Bones/Marrow: Degenerative cystic and reactive marrow signal changes are present along the medial joint line. There are moderate-sized tricompartment marginal osteophytes. There is a 1 cm central osteophyte involving the upper trochlea, extending medially from the trochlear groove. Soft tissues: There is subtle edema in the deep portion of the vastus medialis oblique muscle. MR/MR knee LT wo con IMPRESSION: Severe osteoarthritis is most advanced in the lateral compartment and trochlea. There is a secondary synovitis with a small joint effusion. Medial meniscus is extensively degenerated, frayed, and torn. There is likely a longitudinal tear involving the far peripheral aspect posterior horn medial meniscus extending to the femoral surface. Suspected chronic MCL laxity. MCL bursal effusion. Mild edema and deep fibers of the vastus medialis oblique muscle could represent grade 1 strain or contusion. Electronically signed by: Joe Estrada MD 05/09/2025 05:50 PM EDT
--- OUTSIDE RECORDS SUMMARY | 2025-05-09 16:38 | XMS_ITS | Patient Health Record ---
[facility] Address [address] [place] [address] Care Team Providers Care Bill Sorter Name Role Phone Chucky Smith MD Primary Care Provider Clari Arroyo Unavailable [phone] Allergies Allergen (clinical drug ingredient) Drug/Non Drug Allergy documented on EMR Reaction Allergy Type Onset Date Status doxycycline Doxycycline Unknown Drug Allergy Act hardeep Reason For Referral No Information Medications Medication SIG (Take, Route, Frequency, Duration) Notes Start Date End Date Status Benazepril HCl 10 MG 1 tablet Orally Onc e a day; Duration: 30 day(s) Active amLODIPine Besylate 5 MG 1 tablet Orally Once a day; Duration: 30 day(s) Active Social History Tobacco Use: [...] Insured Coverage Start Date Coverage End Date [facility] [address] [place] [address] [phone] [id number] Rohan Soto Self - patient is the insured Medical (General) History Medical History History ICD Code Back,Hip,and Knee pain High blood pressure Joint implants/screws Von Willebrands Disease Surgical History Surgery Date(Month/Year) jaw surgery 1984 arthroscopic knee surgery 2000, 2001 ankle surgery 1994
== END 2025-05-09 16:36 | disposition home or self-care (01) ==
LOC: HO.MRI 16:35
PROVIDERS: PCP Internal Medicine; Visit Provider Orthopaedic Surgery
DX: S83.242A Other tear of medial meniscus, current injury, left knee, initial encounter (principal)
CPT/HCPCS: 73721

== ENCOUNTER 2025-05-28 13:23 | Outpatient (AMB) | payer OTHER, SELFPAY ==
[2025-05-28 13:26] VITALS: BMI 32.5
--- NOTE | 2025-05-28 13:26 | A.OFFVIS_ITS ---
Vital Signs 05/28/25 13:26 Height 6 ft 3 in Weight 260 lb BMI 32.5 Intake Visit Reasons: WC MRI Review LT knee Intake Note: Rohan is a 60 year old male who presents today for a left knee MRI review. He describes his knee pain as sharp in nature. He did undergo left knee arthroscopic surgery approximately 20 years ago. He got fairly good relief from that surgery initially. He has had cortisone injections in the past. The most recent injection gave him very little relief. He has failed the last 3 months of conservative treatment which has included Tylenol, anti-inflammatory medicines and a home exercise program. At this point the patient's left knee pain is interfering with his activities of daily living and his ability to sleep well through the night. He wishes to hold off on total knee replacement surgery if at all possible. vitals 149/85 102 Heart rate. Allergies doxycycline Allergy (Intermediate, Verified 05/28/25 13:28) Hives Medication List - Last Reconciled 05/28/25 by Preet Valdovinos MD albuterol sulfate 90 mcg/actuation 2 puffs inhalation QID PRN amlodipine-benazepril 5-10 mg 1 cap PO DAILY fexofenadine (Laurie Allergy) 180 mg PO DAILY inhalational spacing device (BreatheRite MDI Spacer) Please as directed with albuterol inhaler [facility] Medical History (Updated 05/28/25 @ 13:58 by Preet Valdovinos MD) Chest congestion Cough due to bronchospasm History of adenomatous polyp of colon Essential hypertension Von Willebrand disease Surgical History (Updated 02/20/25 @ 10:16 by Desirae Alarcon MD) History of mandibular surgery Hx of Achilles tendon repair History of arthroscopy of left knee Family History (Updated 02/20/25 @ 10:22 by Desirae Alarcon MD) Mother Hypothyroidism Hypercholesterolemia Father Lung cancer Paternal Uncle Lung cancer Social History (Updated 02/21/25 @ 00:06 by Desirae Alarcon MD) Alcohol intake: current Alcohol intake frequency: holidays/special occasions only Patient Tobacco Use Status: Never used Tobacco Physical Exam Vital Signs: BMI result Body Mass Index 32.5 Const Other: Well-nourished well-developed very friendly male awake alert and oriented x3 in no acute distress Extrem Other: Left knee examination shows a minimal effusion, tenderness along his medial joint line, positive Callum's test, no instability Results Reviewed Results Reviewed: MRI of the patient's left knee shows mild to moderate diffuse degenerative changes most significant in the medial compartment as well as a medial meniscus tear Assessment & Plan Assessment & Plan (1) Osteoarthritis of left knee: Code(s): M17.12 - Unilateral primary osteoarthritis, left knee Category: Medical Plan Mr. Soto presents with left knee pain due to osteoarthritis. I had a lengthy discussion with the patient regarding the treatment options. He wishes to hold off on surgery if at all possible. I agree with this plan. I will see if the patient's insurance company will cover a viscosupplementation injection such as Durolane. I will see him back once the injection is available. Feel free to call me at any time should questions regarding his orthopedic management arise. I spent 21 minutes in reviewing the patient's records and imaging studies, seeing the patient and documenting in the medical record. Coding Level of Care Code Est Pt Level 3 (63815) Complex EM visit Add On G2211 Diagnoses Osteoarthritis of left knee M17.12
--- OUTSIDE RECORDS SUMMARY | 2025-05-28 14:32 | XMS_ITS | Patient Health Record ---
[facility] Address [address] [place] [address] Care Team Providers Care Jail Keeper Name Role Phone Chucky Smith MD Primary Care Provider Clari Arroyo Unavailable [phone] Allergies Allergen (clinical drug ingredient) Drug/Non Drug [...] Insured Coverage Start Date Coverage End Date [facility] [address] [facility] [place] [address] [id number] Rohan Soto Self - patient is the insured Medical (General) History Medical History History ICD Code Back,Hip,and Knee pain High blood pressure Joint implants/screws Von Willebrands Disease Surgical History Surgery Date(Month/Year) jaw surgery 1984 arthroscopic knee surgery 2000, 2001 ankle surgery 1994
== END 2025-05-28 13:50 | disposition home or self-care (01) ==
LOC: HO.HOS 13:24
PROVIDERS: PCP Internal Medicine; Visit Provider Orthopaedic Surgery
DX: M17.12 Unilateral primary osteoarthritis, left knee (principal)
CPT/HCPCS: 99213; G2211

== ENCOUNTER → 2025-05-28 13:23 | Outpatient (BNVA) | payer OTHER, SELFPAY | PROVIDERS: PCP Internal Medicine; Visit Provider Orthopaedic Surgery | DX: M17.12 Unilateral primary osteoarthritis, left knee (principal) | CPT/HCPCS: 99212 ==

== ENCOUNTER 2025-07-02 08:06 | Outpatient (AMB) | payer OTHER, SELFPAY ==
--- NOTE | 2025-07-02 08:09 | MHC.OFFVIS ---
Vital Signs 07/02/25 08:12 Height 6 ft 3 in Weight 270 lb BMI 33.7 Intake Visit Reasons: Inj- Left knee Durolane Intake Note: Rohan is a 60 year old male who presents today for an injection in the Left knee, Durloane injection. At today's visit he states for the past two weeks he has had intense pain in the left knee. He states that he aggravated his left knee by crossing his right knee over his left knee. He has undergone left knee arthroscopic surgery in the past. He wishes to hold off on further surgery for as long as possible. Allergies doxycycline Allergy (Intermediate, Verified 07/02/25 08:12) Hives Medication List - Last Reconciled 07/02/25 by Preet Valdovinos MD albuterol sulfate 90 mcg/actuation 2 puffs inhalation QID PRN amlodipine-benazepril 5-10 mg 1 cap PO DAILY fexofenadine (Laurie Allergy) 180 mg PO DAILY inhalational spacing device (BreatheRite MDI Spacer) Please as directed with albuterol inhaler [facility] Medical History (Updated 05/28/25 @ 13:58 by Preet Valdovinos MD) Chest congestion Cough due to bronchospasm History of adenomatous polyp of colon Essential hypertension Von Willebrand disease Surgical History (Updated 02/20/25 @ 10:16 by Desirae Alarcon MD) History of mandibular surgery Hx of Achilles tendon repair History of arthroscopy of left knee Family History (Updated 02/20/25 @ 10:22 by Desirae Alarcon MD) Mother Hypothyroidism Hypercholesterolemia Father Lung cancer Paternal Uncle Lung cancer Social History (Updated 02/21/25 @ 00:06 by Desirae Alarcon MD) Alcohol intake: current Alcohol intake frequency: holidays/special occasions only Patient Tobacco Use Status: Never used Tobacco Physical Exam Vital Signs: BMI result Body Mass Index 33.7 Extrem Other: Left knee examination shows a minimal effusion, palpable crepitus with range of motion, pain with range of motion, no instability Office Procedures AMB Joint Injection/Aspiration Joint Injection/Aspiration Primary Site: left knee Prep: site was prepped using aseptic technique Injected: 60 mg of (Durolane viscosupplementation) and 1% plain lidocaine Procedure: The patient tolerated the procedure well Coding 68973 - Large joint Procedure code (CPT) selection complete Results Reviewed Results Reviewed: X-rays of the patient's left knee taken previously show joint space narrowing, subchondral sclerosis, no acute bony abnormalities Assessment & Plan Assessment & Plan (1) Osteoarthritis of left knee: Code(s): M17.12 - Unilateral primary osteoarthritis, left knee Category: Medical Plan Mr. Soto presents with left knee pain due to osteoarthritis. The risks and benefits of a left knee Durolane viscosupplementation injection were discussed at length with the patient. The patient wished to proceed. He tolerated the injection well. He will continue with his home exercise program. He will contact me prior to his follow-up appointment in 3 months should any questions or concerns arise. Feel free to call me at any time should questions regarding his orthopedic management arise. I spent 22 minutes in reviewing the patient's records and imaging studies, seeing the patient and documenting in the medical record. Orders: Orders AMB Joint Injection/Aspiration Today M17.12 - Unilateral primary osteoarthritis, left knee Coding Level of Care Code Est Pt Level 3 (47748) Complex EM visit Add On G2211 Diagnoses Osteoarthritis of left knee M17.12 CPT Codes Coding - 55232 Large joint: 50974 - Large joint ([id number])
[2025-07-02 08:12] VITALS: BMI 33.7
--- OUTSIDE RECORDS SUMMARY | 2025-07-02 08:12 | XMS_ITS | Patient Health Record ---
[facility] Address [address] [place] [address] Care Team Providers Care Client Sales And Service Officer Name Role Phone Chucky Smith MD Primary Care Provider Clari Arroyo Unavailable [phone] Allergies Allergen (clinical drug ingredient) Drug/Non Drug [...] Insured Coverage Start Date Coverage End Date [facility] [address] [facility] [place] [address] [id number] Rohan Soto Self - patient is the insured Medical (General) History Medical History History ICD Code Back,Hip,and Knee pain High blood pressure Joint implants/screws Von Willebrands Disease Surgical History Surgery Date(Month/Year) jaw surgery 1984 arthroscopic knee surgery 2000, 2001 ankle surgery 1994
== END 2025-07-02 08:29 | disposition home or self-care (01) ==
LOC: HO.HOS 08:07
PROVIDERS: PCP Internal Medicine; Visit Provider Orthopaedic Surgery
DX: M17.12 Unilateral primary osteoarthritis, left knee (principal)
CPT/HCPCS: 20610; 99213

== ENCOUNTER → 2025-07-02 08:06 | Outpatient (BNVA) | payer OTHER, SELFPAY | PROVIDERS: PCP Internal Medicine; Visit Provider Orthopaedic Surgery | DX: M17.12 Unilateral primary osteoarthritis, left knee (principal) | CPT/HCPCS: 20610; 99212; J2003; J7318 ==